=== PATIENT | male | born 1975 | race American Indian/Alaskan Native ===

== ENCOUNTER → 2017-04-08 10:40 | Outpatient (CLI) | payer OTHER, SELFPAY ==
[2017-04-08 18:46] LABS: Basophils % 0.7 % (0.1-2.0); Eosinophils # 0.1 K/mm3 (0.0-0.4); Eosinophils % 2.4 % (0.1-12.0); Hematocrit 49.5 % (42.0-52.0); Hemoglobin 16.1 g/dL (14.1-18.0); Lymphocytes # 2.1 K/mm3 (0.7-4.5); Lymphocytes % 44.7 K/mm3 (10-50); Mean Corpuscular HGB Conc 32.5 g/dL (31.8-35.4); Mean Corpuscular Hemoglobin 29.5 pg (27.0-31.2); Mean Corpuscular Volume 90.6 fl (80-94); Monocytes # 0.3 K/mm3 (0.1-1.0); Monocytes % 6.4 % (1.7-9.3); Neutrophils # 2.2 K/mm3 (1.8-7.8); Neutrophils % 45.8 % (37.0-80.0); Platelet Count 197 K/mm3 (142-424); Red Blood Count 5.46 M/mm3 (4.60-6.20); Red Cell Distribution Width 12.6 % (11.5-17.5); White Blood Count 4.7 K/mm3 (4.8-10.8)
[2017-04-08 19:02] LABS: Alanine Aminotransferase 187 U/L (12-78); Albumin/Globulin Ratio 1.1 (1.1-1.8); Alkaline Phosphatase 121 U/L (46-116); Anion Gap 10.7 mEq/L (5-15); Aspartate Amino Transferase 83 U/L (15-37); Bilirubin,Total 0.3 mg/dL (0.2-1.0); Blood Urea Nitrogen 13 mg/dL (7-18); Calcium 9.1 mg/dL (8.5-10.1); Carbon Dioxide 30 mmol/L (21.0-32.0); Chloride 103 mmol/L (98-107); Chol/HDL Ratio 6.3 (1-3.5); Cholesterol 266 mg/dL (140-200); Creatinine,Serum 0.79 mg/dL (0.70-1.30); Estimated Glomerular Filt Rate 108 ml/min (>60); Free T4 (Free Thyroxine) 0.77 ng/dl (0.76-1.46); GFR (African American) 131 ML/MIN (>60); Globulin 3.8 gm/dl (1.3-3.2); Glucose 81 mg/dL (74-106); HDL Cholesterol 42 mg/dL (27-67); LDL Cholesterol 156 mg/dL (0-130); Potassium 4.7 mmoL/L (3.5-5.1); Sodium 139 mmol/L (136-145); Thyroid Stimulating Hormone 2.75 uIU/ml (0.358-3.740); Total Protein,Serum 7.8 gm/dL (6.4-8.2); Triglycerides 338 mg/dL (30-200); VLDL Cholesterol 68 mg/dL (0-40)
[2017-04-08 19:18] LABS: Hemoglobin A1C 5.6 % (0.0-7.0)
[2017-04-13 06:35] LABS: Vitamin D 25 Hydroxy 22.9 ng/mL (30.0-100.0)
== END ==
PROVIDERS: Visit Provider Nurse Practitioner Family
DX: R53.83 Other fatigue (principal); R79.89 Other specified abnormal findings of blood chemistry
CPT/HCPCS: 80053; 80061; 82652; 83036; 84439; 84443; 85025

== ENCOUNTER → 2017-04-18 07:41 | Outpatient (CLI) | payer OTHER, SELFPAY ==
[2017-04-19 07:15] LABS: Hep A Ab, IgM Negative (Negative); Hepatitis B Core Antibody IgM Negative (Negative); Hepatitis B Surface Antigen Negative (Negative)
[2017-04-19 10:39] LABS: Hepatitis C Antibody <0.1 s/co ratio (0.0-0.9)
== END ==
PROVIDERS: Visit Provider Physician Assistant
DX: R79.89 Other specified abnormal findings of blood chemistry (principal); R53.83 Other fatigue
CPT/HCPCS: 36415; 80074

== ENCOUNTER → 2017-05-13 07:34 | Outpatient (CLI) | payer OTHER, SELFPAY ==
[2017-05-13 08:39] LABS: Alanine Aminotransferase 113 U/L (12-78); Albumin Level 3.8 gm/dL (3.4-5.0); Alkaline Phosphatase 121 U/L (46-116); Aspartate Amino Transferase 46 U/L (15-37); Bilirubin,Direct 0.2 mg/dL (0.0-0.2); Bilirubin,Total 0.3 mg/dL (0.2-1.0); Total Protein,Serum 7.3 gm/dL (6.4-8.2)
== END ==
PROVIDERS: Visit Provider Emergency Medicine
DX: R79.89 Other specified abnormal findings of blood chemistry (principal)
CPT/HCPCS: 36415; 80076

== ENCOUNTER → 2017-12-10 07:36 | Outpatient (CLI) | payer OTHER, SELFPAY ==
[2017-12-10 09:27] LABS: Alanine Aminotransferase 176 U/L (12-78); Albumin Level 3.6 gm/dL (3.4-5.0); Alkaline Phosphatase 101 U/L (46-116); Aspartate Amino Transferase 97 U/L (15-37); Bilirubin,Direct 0.1 mg/dL (0.0-0.2); Bilirubin,Indirect 0.3 mg/dL (0.0-0.9); Bilirubin,Total 0.4 mg/dL (0.2-1.0); Chol/HDL Ratio 6.4 (1-3.5); Cholesterol 244 mg/dL (140-200); HDL Cholesterol 38 mg/dL (27-67); Total Protein,Serum 7.2 gm/dL (6.4-8.2)
[2017-12-10 09:37] LABS: Triglycerides 429 mg/dL (30-200)
== END ==
PROVIDERS: Family Provider Emergency Medicine; PCP Nurse Practitioner Family; Visit Provider Physician Assistant
DX: E78.49 Other hyperlipidemia; E55.9 Vitamin D deficiency, unspecified; I10 Essential (primary) hypertension; R79.89 Other specified abnormal findings of blood chemistry; R94.5 Abnormal results of liver function studies
CPT/HCPCS: 36415; 80061; 80076

== ENCOUNTER → 2017-12-23 13:27 | Outpatient (CLI) | payer OTHER, SELFPAY ==
--- NOTE | 2017-12-23 13:33 | CA_ITS ---
PROCEDURE: 2-D M-mode and color Doppler study INDICATIONS FOR THE TEST: Chest pain X COPD Heart Murmur Tobacco SmokingEX Palpitations Fatigue Syncope EdemaX HypertensionXDiabetes Mellitus Rheumatic Fever SOBXDOEXObesity HyperlipidemiaX Family History HD Additional History PATIENT INFORMATION HEIGHT: 65 WEIGHT:213 GENDER: Male B/P:160/97 2-D/M-MODE INTERPRETATION: 2-D MEASUREMENTS OBSERVED VALUES IN CMS Right Ventricular Dimension (RVDd) 3.0 Interventricular Septum (Thickness)(IVsd) .8 Left Ventricular Internal Dimensions(LVIDd) 5.6 Left Ventricular Posterior Wall (Thickness)(LVPWd) 1.0 Aortic Root 2.9 Aortic Cusp Separation 1.6 Left Atrial Dimensions (LAD) 3.9 2D 1. Left atrium is mildly enlarged, left ventricle is normal size, mild qualitative concentric left ventricular hypertrophy, visually estimated ejection fraction of 55% with no regional wall motion abnormality. 2. The right atrium and right ventricle are mildly enlarged with normal contractility. 3. The aortic valve is minimally thickened and fibrosed. 4. The mitral and tricuspid valvular grossly normal. 5. The pulmonic valve is poorly visualized. 6. No significant pericardial effusion noted. DOPPLER INTERROGATION: Doppler interrogation of the aortic, mitral and tricuspid valvular presence of mild mitral and tricuspid regurgitation, tricuspid regurgitation jet velocity is inadequate for calculation of the right ventricular systolic pressure, grade 1 diastolic dysfunction seen with tissue Doppler evidence of raised left atrial pressure. CONCLUSION: 1. Mildly enlarged left atrium, normal left ventricular size, mild qualitative concentric left ventricular hypertrophy, visually estimated ejection fraction 55% with no regional wall motion abnormality, grade 1 diastolic dysfunction seen with tissue Doppler evidence of raised left atrial pressure. 2. Mild mitral and tricuspid regurgitation 3. No significant pericardial effusion noted.
== END ==
PROVIDERS: PCP Emergency Medicine; Visit Provider Internal Medicine
DX: R07.9 Chest pain, unspecified (principal); R06.00 Dyspnea, unspecified; E55.9 Vitamin D deficiency, unspecified; E78.49 Other hyperlipidemia; I10 Essential (primary) hypertension; R94.5 Abnormal results of liver function studies
CPT/HCPCS: 93306

== ENCOUNTER → 2018-01-19 07:19 | Outpatient (CLI) | payer OTHER, SELFPAY ==
--- NOTE | 2018-01-19 07:21 | NM_ITS ---
History and Indications: Hypertension, hyperlipidemia, chest pain, shortness of breath, palpitations and fatigue Procedure: Patient exercised on William protocol 11 minutes and 30 seconds, resting heart rate was 59 bpm resting blood pressure 134/77, with exercise maximum heart rate achieved was 1 44 bpm which is equal to 81% of the maximum predicted heart rate and a blood pressure was 162/88. Test was stopped due to leg fatigue patient denied any complained of chest pain. Patient has good exercise capacity achieved 12.8mets of workload on treadmill, the blood pressure response to exercise with adequate, patient did not achieve the target heart rate. Electrocardiogram: Resting echocardiogram showed sinus bradycardia, rightward axis, with exercise there is less than 1.[address] segment depression noted from the baseline EKG. The EKG portion of the exercise Myoview is nondiagnostic. Cardiac stress and resting SPECT images: Cardiac stress and resting SPECT images were obtained using technetium 99 Myoview 32.6 mCi stress and 10.6 mCi at rest. Gated SPECT further analysis of segmental wall motion and calculation of the ejection was also done. Cardiac stress and the suspect images show uniform myocardial activity without segmental perfusion abnormality, computer derived ejection fraction is 55% with no regional wall motion abnormality, right ventricle is normal size and contractility. Conclusion: 1. The EKG portion of the exercise Myoview is nondiagnostic as patient achieved target heart rate, patient has good exercise capacity achieved 12.8mets of workload on treadmill, the blood pressure response to exercise. 2. No scintigraphic evidence of reversible ischemia seen at this level of exercise, computer derived ejection fraction is 55% with no regional wall motion abnormality, right ventricle is normal size and contractility.
--- NOTE | 2018-01-19 09:14 | HMH.ITSHM ---
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 [] vit d lisinopril gemifibrozil
== END ==
PROVIDERS: PCP Emergency Medicine; Visit Provider Internal Medicine
DX: E78.5 Hyperlipidemia, unspecified (principal); I10 Essential (primary) hypertension; I51.9 Heart disease, unspecified; R79.89 Other specified abnormal findings of blood chemistry
CPT/HCPCS: 78452; 93017; A9502

== ENCOUNTER → 2018-02-09 18:51 | Outpatient (CLI) | payer OTHER, SELFPAY | PROVIDERS: PCP Emergency Medicine; Visit Provider Internal Medicine Cardiovascular Disease | DX: E78.49 Other hyperlipidemia (principal); I10 Essential (primary) hypertension; R94.5 Abnormal results of liver function studies | CPT/HCPCS: 95806 ==